=== PATIENT | female | born 1990 | race Hispanic/Latino ===

== ENCOUNTER 2023-10-27 06:46 | Emergency (ER) | payer OTHER ==
[~2023-10-27] VITALS: Ht 160 cm; Wt 80.0 kg
[2023-10-27] MEDS ORDERED: RABIES IMMUNE GLOBULIN 1500 INTERNATIONAL UNIT/5ML VIAL IM.IMMUN ONE (10:50)
[2023-10-27] MEDS: RABIES VACCINE HUMAN 2.5 INTERNATIONAL UNITS/ML VIAL IM ONE (11:11)
[2023-10-27] MEDS: RABIES IMMUNE GLOBULIN 300 INTERNATIONAL UNITS/1ML VIAL IM.IMMUN ONE (11:14)
[2023-10-27] MEDS: RABIES IMMUNE GLOBULIN 1500 INTERNATIONAL UNIT/5ML VIAL IM.IMMUN ONE (11:23)
[2023-10-27 11:44] VITALS: BP 119/73; TEMP 97.3; O2SAT 100
== END 2023-10-27 11:46 | disposition home or self-care (01) ==
LOC: M ED 06:46
DX: Z20.3 Contact with and (suspected) exposure to rabies (principal); W55.81XA Bitten by other mammals, initial encounter; S61.051A Open bite of right thumb without damage to nail, initial encounter; Y92.019 Unspecified place in single-family (private) house as the place of occurrence of the external cause; Y93.9 Activity, unspecified; Y99.9 Unspecified external cause status; F17.290 Nicotine dependence, other tobacco product, uncomplicated; Z29.14 Encounter for prophylactic rabies immune globulin; Z23 Encounter for immunization

== ENCOUNTER 2023-10-30 06:47 | Emergency (ER) | payer OTHER ==
[~2023-10-30] VITALS: Ht 157.5 cm; Wt 80.0 kg
[2023-10-30 10:15] VITALS: BP 119/78
[2023-10-30 10:17] VITALS: TEMP 96.8; O2SAT 100
[2023-10-30] MEDS: RABIES VACCINE HUMAN 2.5 INTERNATIONAL UNITS/ML VIAL IM ONE (10:22)
== END 2023-10-30 10:29 | disposition home or self-care (01) ==
LOC: M ED 06:47
DX: Z29.14 Encounter for prophylactic rabies immune globulin (principal); F17.290 Nicotine dependence, other tobacco product, uncomplicated; Z23 Encounter for immunization

== ENCOUNTER 2023-11-03 05:35 | Emergency (ER) | payer OTHER ==
[~2023-11-03] VITALS: Ht 160 cm; Wt 78.5 kg
[2023-11-03] MEDS ORDERED: VENL150C43 PO (06:11)
[2023-11-03] MEDS ORDERED: BUPR-597 PO (06:11)
[2023-11-03] MEDS: RABIES VACCINE HUMAN 2.5 INTERNATIONAL UNITS/ML VIAL IM ONE (06:53)
[2023-11-03 07:18] VITALS: BP 109/64; TEMP 97.1; O2SAT 97
== END 2023-11-03 07:23 | disposition home or self-care (01) ==
LOC: M ED 05:35
DX: Z29.14 Encounter for prophylactic rabies immune globulin (principal); W55.81XA Bitten by other mammals, initial encounter; Y92.009 Unspecified place in unspecified non-institutional (private) residence as the place of occurrence of the external cause; Z79.899 Other long term (current) drug therapy

== ENCOUNTER 2023-11-10 08:23 | Emergency (ER) | payer OTHER ==
[~2023-11-10] VITALS: Ht 160 cm; Wt 80.4 kg
[~2023-11-10 08:23] MED LIST: BUPR-597 PO; VENL150C43 PO
[2023-11-10] MEDS: RABIES VACCINE HUMAN 2.5 INTERNATIONAL UNITS/ML VIAL IM ONE (08:39)
[2023-11-10 08:57] VITALS: BP 112/73; TEMP 96.9; O2SAT 98
== END 2023-11-10 09:16 | disposition home or self-care (01) ==
LOC: M ED 08:23
DX: Z29.14 Encounter for prophylactic rabies immune globulin (principal); Z79.899 Other long term (current) drug therapy; F17.200 Nicotine dependence, unspecified, uncomplicated; F12.10 Cannabis abuse, uncomplicated